=== PATIENT | male | born 2000 | race Two or more races ===

== ENCOUNTER 2024-08-03 13:02 | Emergency (ER) | payer OTHER ==
[2024-08-03] MEDS: HYDROmorphone 0.5 MG/0.5 ML Syringe SUBCUT STA (13:12)
[2024-08-03] MEDS: Diphtheria,Pertussis(Acell),Tetanus Vaccine 0.5 ML Syringe IM ONE (13:20)
[2024-08-03] MEDS: Lidocaine 1% with EPINEPHrine 1:100,000 10 ML MDV INJECT ONE (13:48)
[2024-08-03] MEDS: Bacitracin Oint 1 GM U/D Packet TOP ONE (13:49)
== END 2024-08-03 15:10 | disposition home or self-care (01) ==
LOC: CC.ED 13:02
DX: S61.213A Laceration without foreign body of left middle finger without damage to nail, initial encounter (principal); S61.215A Laceration without foreign body of left ring finger without damage to nail, initial encounter; S61.211A Laceration without foreign body of left index finger without damage to nail, initial encounter; Z23 Encounter for immunization; X58.XXXA Exposure to other specified factors, initial encounter
CPT/HCPCS: 12002; 73130-LT; 90471; 90715; 96372; 99283; 99283-25